=== PATIENT | male | born 1980 ===

== ENCOUNTER 2020-09-17 12:21 | Emergency (ER) | payer OTHER ==
[~2020-09-17] VITALS: Ht 162.6 cm; Wt 69.4 kg
== END 2020-09-17 12:50 | disposition home or self-care (01) ==
LOC: ER 12:21
DX: S61.051A Open bite of right thumb without damage to nail, initial encounter (principal); W54.0XXA Bitten by dog, initial encounter
CPT/HCPCS: 90471; 90714; 99282-25